=== PATIENT | female | born 1980 | race Caucasian/White ===

== ENCOUNTER 2020-08-30 10:27 | Emergency (ER) | payer OTHER ==
[~2020-08-30] VITALS: Ht 162.6 cm; Wt 80.0 kg
[~2020-08-30 10:27] MED LIST: NO HOME MEDS
[2020-08-30 10:29] VITALS: BP 137/72
[2020-08-30 10:54] LABS: HEMOGLOBIN 13.8 g/dl (12.0-16.0); MEAN PLATELET VOLUME 10.8 FL (7.4-10.4)
[2020-08-30 10:55] LABS: BASOPHILS % (AUTO) 0.2 % (0-1); EOSINOPHILS % (AUTO) 0.3 % (0-6); HEMATOCRIT 40.9 % (35.0-45.0); LYMPHOCYTES # (AUTO) 0.9 X10'3 (1.1-4.8); LYMPHOCYTES % (AUTO) 7.6 % (21-51); MEAN CORPUSCULAR HEMOGLOBIN 31.4 PG (27.0-31.0); MEAN CORPUSCULAR HGB CONC 33.8 g/dL (33.0-36.5); MONOCYTES # (AUTO) 0.8 X10'3 (0-0.9); MONOCYTES % (AUTO) 6.4 % (2-12); NEUTROPHILS # (AUTO) 10.1 X10'3 (1.8-7.7); NEUTROPHILS % (AUTO) 85.5 % (42-75); PLATELET COUNT 164 X10'3 (140-440); RED CELL DISTRIBUTION WIDTH 12.5 % (11.5-14.5); WHITE BLOOD COUNT 11.8 X10'3 (4.5-11.0)
[2020-08-30 11:05] LABS: ALANINE AMINOTRANSFERASE 21 U/L (12-78); ALBUMIN 4.1 G/DL (3.4-5.0); ALBUMIN/GLOBULIN RATIO 1.1 (1.1-1.5); ALKALINE PHOSPHATASE 40 IU/L (46-116); ANION GAP 11 (8-16); ASPARTATE AMINO TRANSFERASE 14 U/L (10-37); BILIRUBIN,TOTAL 0.5 MG/DL (0.1-1.0); BLOOD UREA NITROGEN 11 MG/DL (7-18); BUN/CREATININE RATIO 9.6 (6.6-38.0); CALCIUM 8.6 MG/DL (8.5-10.1); CHLORIDE 104 MMOL/L (99-107); CREATININE 1.15 MG/DL (0.40-0.90); GLUCOSE 93 MG/DL (70-104); LIPASE 107 U/L (73-393); POTASSIUM 4.1 MMOL/L (3.5-5.1); SODIUM 142 MMOL/L (135-145); TOTAL CARBON DIOXIDE 26.8 MMOL/L (24-32); TOTAL PROTEIN 7.8 G/DL (6.4-8.2); eGFR 52 ML/MIN
[2020-08-30 11:15] LABS: TOTAL CELLS COUNTED 100
[2020-08-30 11:17] LABS: PLATELET ESTIMATE NORMAL; STOMATOCYTES FEW
[2020-08-30 12:01] LABS: CLARITY,URINE SLIGHTLY CLOUDY (Clear); COLOR,URINE YELLOW (Yellow); GLUCOSE, URINE NEGATIVE (Neg); KETONES,URINE NEGATIVE (Neg); LEUKOCYTE ESTERASE ,URINE NEGATIVE (Neg); NITRITES, URINE NEGATIVE (Neg); OCCULT BLOOD,URINE NEGATIVE (Neg); PROTEIN,URINE NEGATIVE (Neg); UROBILINOGEN,URINE 0.2 E.U/dL (0.2-1.0)
[2020-08-30 12:04] LABS: UA COLLECTION TYPE CLN CATCH MIDSTREAM
[2020-08-30 12:07] LABS: MUCUS STRANDS FEW /LPF (Neg); SQUAMOUS EPITHELIAL CELL,UR MODERATE /LPF (FEW)
[2020-08-30 12:08] LABS: BACTERIA,URINE FEW /HPF (Neg); RBC,URINE 0-2 /HPF (0-2); WBC,URINE 0-4 /HPF (0-4)
[2020-08-30 12:14] LABS: URINE HCG NEGATIVE (NEG)
--- NOTE | 2020-08-30 13:06 | NUR ---
Ultra sound in progress.
== END 2020-08-30 13:53 | disposition home or self-care (01) ==
LOC: ER 10:27
DX: R10.30 Lower abdominal pain, unspecified (principal); R19.7 Diarrhea, unspecified; Z98.891 History of uterine scar from previous surgery
CPT/HCPCS: 36415; 76830; 76856; 80053; 81001; 81025; 83690; 85007; 85025; 99284

== ENCOUNTER 2020-09-02 06:22 | Day surgery (SDC) | payer OTHER ==
[2020-08-26 15:56] LABS: EOSINOPHILS # (AUTO) 0.1 X10'3 (0-0.9); MEAN CORPUSCULAR HGB CONC 33.7 g/dL (33.0-36.5); NEUTROPHILS # (AUTO) 4.2 X10'3 (1.8-7.7); PRE OP HEMOGLOBIN 13.9 g/dL (12.0-16.0); PRE OP PLATELET COUNT 175 X10'3 (140-440); PRE OP PROTIME 10.8 SECONDS (9.0-12.0); RED CELL DISTRIBUTION WIDTH 12.5 % (11.5-14.5)
[2020-08-26 15:58] LABS: BASOPHILS % (AUTO) 0.5 % (0-1); LYMPHOCYTES # (AUTO) 2.2 X10'3 (1.1-4.8); LYMPHOCYTES % (AUTO) 31.1 % (21-51); MEAN CORPUSCULAR HEMOGLOBIN 31.5 PG (27.0-31.0); MEAN CORPUSCULAR VOLUME 93.5 FL (78-98); MONOCYTES # (AUTO) 0.6 X10'3 (0-0.9); NEUTROPHILS % (AUTO) 59.4 % (42-75); PRE OP HEMATOCRIT 41.2 % (35.0-45.0); RED BLOOD COUNT 4.41 X10'6 (4.20-5.60)
[2020-08-26 16:02] LABS: ALBUMIN 4.4 G/DL (3.4-5.0); ALBUMIN/GLOBULIN RATIO 1.2 (1.1-1.5); ALKALINE PHOSPHATASE 40 IU/L (46-116); BETA HCG,QUANTITATIVE < 1.0 mIU/ml; BLOOD UREA NITROGEN 12 MG/DL (7-18); BUN/CREATININE RATIO 10.9 (6.6-38.0); CALCIUM 9.1 MG/DL (8.5-10.1); CHLORIDE 104 MMOL/L (99-107); PRE OP ALT 21 U/L (30-65); PRE OP ANION GAP 10 (8-16); PRE OP AST 16 U/L (10-37); PRE OP BILIRUB, TOTAL 0.4 MG/DL (0.0-1.0); PRE OP GLUCOSE 77 MG/DL (70-104); PRE OP POTASSIUM 3.5 MMOL/L (3.4-5.1); PRE OP SODIUM 141 MMOL/L (135-145); TOTAL CARBON DIOXIDE 26.9 MMOL/L (24-32); TOTAL PROTEIN 8.2 G/DL (6.4-8.2); eGFR 55 ML/MIN
[2020-08-26 22:23] LABS: LARGE PLATELETS MODERATE; PLATELET ESTIMATE NORMAL
[~2020-09-02] VITALS: Ht 162.6 cm; Wt 72.8 kg
[2020-09-02] VITALS (19 sets, daily range): BP systolic 117–193; BP diastolic 68–96
[~2020-09-02 06:22] MED LIST changes: +famotidine 20mg tablet PO ONE; +oxymetazoline 15 ML nasal spray NS PRN; +ringers solution, lacted 1,000 ML IV SCH
[2020-09-02] MEDS ORDERED: LIDOcaine 1% W/epiNEPHrine 1:100,000 20ml vial ONE (06:58)
[2020-09-02] MEDS ORDERED: cocaine 4% topical solution 4ml bottle ONE (06:58)
[2020-09-02] MEDS ORDERED: mupirocin 2% ointment 22GM ONE (06:59)
[2020-09-02] MEDS ORDERED: cefTAZidime 1gm inj ONE (06:59)
[2020-09-02] MEDS ORDERED: oxymetazoline 15 ML nasal spray NS ONE (06:59)
[2020-09-02] MEDS ORDERED: methylPREDNISolone acetate 80mg/ml inj**IM only ONE ×2 (07:00)
[2020-09-02] MEDS ORDERED: sevoflurane 250ml liquid IH ONE (08:16)
[2020-09-02] MEDS ORDERED: fentaNYL/PF 50MCG/1 ML 2ML syringe ONE (08:20)
[2020-09-02] MEDS ORDERED: dexamethasone sod phosphate 4mg/ml inj. ONE (08:21)
[2020-09-02] MEDS ORDERED: ondansetron/PF 4mg/2ml inj ONE (08:21)
[2020-09-02] MEDS ORDERED: MIDAZolam 5mg/5ml vial ONE (08:21)
[2020-09-02] MEDS ORDERED: ceFAZolin 1000mg inj ONE (08:21)
[2020-09-02] MEDS ORDERED: propofol inj 20 ML IV ONE (08:21)
[2020-09-02] MEDS ORDERED: LIDOcaine 2% (20mg/ml) 5ml vial ONE (08:22)
[2020-09-02] MEDS ORDERED: hydrALAZINE 20mg/ml inj. IV PRN (08:55)
[2020-09-02] MEDS ORDERED: morphine 2 MG/ML inj. syringe IV PRN (08:55)
[2020-09-02] MEDS ORDERED: ringers solution, lacted 1,000 ML IV SCH (08:55)
[2020-09-02] MEDS ORDERED: ondansetron/PF 4mg/2ml inj IV PRN (08:55)
[2020-09-02] MEDS ORDERED: labetalol 20mg/4ml (5mg/ml) syringe IV PRN (08:55)
[2020-09-02] MEDS ORDERED: morphine 4 MG/ML inj SYRINge IV PRN (08:55)
[2020-09-02] MEDS ORDERED: fentaNYL/PF 50MCG/1 ML 2ML syringe IV PRN ×2 (08:55)
[2020-09-02] MEDS ORDERED: labetalol 20mg/4ml (5mg/ml) syringe IV ONE (09:22)
--- NOTE | 2020-09-02 09:58 | NUR ---
Received from OR via [facility], accompanied by Anesthesiologist DR SMITH and report given by Anesthesiologist. PT DROWSY, DENIES PAIN, BILAT NARES W/COTTONNOIDS IN PLACE, PT LIGHTLY BLEEDING, GAUZE W/LETI HINES APPLIED, WILL CONTINUE TO MONITOR. Addendum: 09/02/20 at 1023 by Arely Hayes RN Amended: Links added.
[2020-09-02] MEDS ORDERED: mupirocin 2% ointment 22GM TP SCH (10:45)
[2020-09-02] MEDS ORDERED: salt irrigation nasal spray 45 ML SPRAY NS SCH (10:45)
[2020-09-02] MEDS ORDERED: oxymetazoline 15 ML nasal spray NS SCH (10:45)
--- NOTE | 2020-09-02 13:08 | NUR ---
PT W/SMALL AMT OF S/S DRAINAGE ON 4X4, FULL INSTRUCTIONS GIVEN, DEMONSTRATED AND GONE OVER W/PT WHO VERBALIZED AND DEMONSTRATED UNDERSTANDING. PT UP AND ABLE TO AMBULATE SAFELY. PT D/CD TO HOME VIA W/C TO PRIVATE VEHICLE W/O INCIDENT. Addendum: 09/02/20 at 1339 by Arely Hayes RN Amended: Links added.
== END 2020-09-02 13:08 | disposition home or self-care (01) ==
LOC: PAS 06:22
PROVIDERS: ATTEND Otolaryngology
DX: J34.2 Deviated nasal septum (principal); J34.3 Hypertrophy of nasal turbinates; J32.8 Other chronic sinusitis; J34.89 Other specified disorders of nose and nasal sinuses; N18.9 Chronic kidney disease, unspecified; Z98.890 Other specified postprocedural states; Z79.899 Other long term (current) drug therapy; Z20.828 Contact with and (suspected) exposure to other viral communicable diseases; R10.2 Pelvic and perineal pain
CPT/HCPCS: 30140; 30520; 31240; 31254; 31256; 36415; 61782; 70486; 80053; 82948; 84702; 85025; 85576; 85610; 85730; 87635; A6402; C9250; C9803; J0690; J0713; J1040; J1100; J2001; J2250; J2270; J2405; J2704; J3010; J7040; J7120; 85008; A4618; A7000; J3490